=== PATIENT | male | born 1975 | race Caucasian/White ===

== ENCOUNTER 2023-09-24 11:01 | Emergency (ER) | payer SELFPAY ==
--- NOTE | ~2023-09-24 | CT_ITS ---
EXAMINATION: CT cervical spine wo con DATE: 09/24/2023 12:12 INDICATION: Neck pain radiating to the right arm TECHNIQUE: Computed tomography (CT) of the cervical spine was performed without intravenous contrast. The dose-length product (DLP) was 584.45 mGy-cm. Automated exposure control and iterative reconstruc tion technique were employed. COMPARISON: None FINDINGS: Bone alignment is normal. There is no fracture. The odontoid process is intact. The vertebr al body heights are maintained. There is mild loss of intervertebral disc space height at C5-6. The p revertebral soft tissues are normal. IMPRESSION: 1. No acute osseous abnormality. Reviewed, dictated and finalized at location [facility] [employer]
[2023-09-24 11:01] VITALS: BP 160/102; PULSE 95; RESP 20; TEMP 35.8; O2SAT 98
--- NOTE | 2023-09-24 11:23 | ED.GENADULT ---
HPI - General Adult General Chief complaint: Neck Pain/Injury Stated complaint: neck pain Time Seen by Provider: 09/24/23 11:12 History of Present Illness HPI narrative: Wilfrid is a 48M with a PMH of chronic neck pain that presented to the ED with neck pain. It started to hurt worse 3 days ago but has been improving since. It is worse on the right side and with driving his stick shift vehicle. No falls or trauma reported. There is some numbness in the right arm but no weakness. No loss of bowel/bladder control. Related Data Allergies Allergy/AdvReac Type Severity Reaction Status Date / Time No Known Allergies Allergy Verified 09/24/23 11:34 Review of Systems Review of Systems: All systems reviewed & are unremarkable except as noted in HPI and below Exam Const: General: cooperative, healthy appearing, comfortable, no acute distress, well developed, alert, awake and Physically active Orientation/consciousness: oriented to person, oriented to place and oriented to time HENMT: Head: normal to inspection, normocephalic and atraumatic Ears: hearing grossly normal bilaterally and external ears normal Face/Nose/Sinus: Normal external nose present Eyes: General: appearance normal, both eyes and all related structures Periorbital: periorbital findings normal Sclera: sclerae normal Pupils: Equal, round and reactive pupils present Neck: Neck: normal visual inspection Chest: Chest palpation & inspection: normal inspection of the chest Resp: Effort & Inspection: normal respiratory effort, able to speak in complete sentences and no respiratory distress Cardio: Jugular venous distension: no JVD Rate: regular rate GI: Inspection: normal to inspection GI Palp: Yes Soft to palpation Auscultation: normal bowel sounds Skin: General skin exam: normal color and no rashes or lesions noted Neuro: General: oriented to person, oriented to place and oriented to time Cranial nerves: Yes Equal, round and reactive pupils present Other: +Spurling maneuver on the right. No midline tenderness 5/5 symmetrical strength in the upper extremities Extrem: General: normal to inspection Psych: Mental Status: mental status grossly normal Course Course Emergency Course: EXAMINATION: CT cervical spine wo con DATE: 09/24/2023 12:12 INDICATION: Neck pain radiating to the right arm TECHNIQUE: Computed tomography (CT) of the cervical spine was performed without intravenous contrast. The dose-length product (DLP) was 584.45 mGy-cm. Automated exposure control and iterative reconstruction technique were employed. COMPARISON: None FINDINGS: Bone alignment is normal. There is no fracture. The odontoid process is intact. The vertebral body heights are maintained. There is mild loss of intervertebral disc space height at C5-6. The prevertebral soft tissues are normal. IMPRESSION: 1. No acute osseous abnormality. Vital Signs Vital signs: Vital Signs Temperature 96.4 F L 09/24/23 11:01 Pulse Rate 95 09/24/23 11:01 Respiratory Rate 20 09/24/23 11:01 Blood Pressure 160/102 H 09/24/23 11:01 Pulse Oximetry 98 09/24/23 11:01 Oxygen Delivery Room Air 09/24/23 11:01 Temperature 96.4 F L 09/24/23 11:01 Pulse Rate 75 09/24/23 12:50 Respiratory Rate 16 09/24/23 12:50 Blood Pressure 141/88 H 09/24/23 12:50 Pulse Oximetry 96 09/24/23 12:50 Oxygen Delivery Room Air 09/24/23 12:50 Medical Decision Making Vital Signs Vital Signs: Vital Signs Temperature 96.4 F L 09/24/23 11:01 Pulse Rate 95 09/24/23 11:01 Respiratory Rate 20 09/24/23 11:01 Blood Pressure 160/102 H 09/24/23 11:01 Pulse Oximetry 98 09/24/23 11:01 Oxygen Delivery Room Air 09/24/23 11:01 Temperature 96.4 F L 09/24/23 11:01 Pulse Rate 75 09/24/23 12:50 Respiratory Rate 16 09/24/23 12:50 Blood Pressure 141/88 H 09/24/23 12:50 Pulse Oximetry 96 09/24/23 12:50 Oxygen Delivery Room Air 09/24/23 12:50
[2023-09-24] MEDS: KETOROLAC 30 MG/ML VIAL (*BKC) IM (11:31)
[2023-09-24 12:50] VITALS: BP 141/88; PULSE 75; RESP 16; O2SAT 96
== END 2023-09-24 13:16 | disposition home or self-care (01) ==
PROVIDERS: Emergency Provider Family Medicine
DX: S16.1XXA Strain of muscle, fascia and tendon at neck level, initial encounter (principal); X58.XXXA Exposure to other specified factors, initial encounter
CPT/HCPCS: 72125; 96372; 99284; J1885